=== PATIENT | female | born 1995 | race Caucasian/White ===

== ENCOUNTER 2017-10-08 09:08 | Emergency (ER) | payer BC ==
--- NOTE | 2017-10-08 09:29 | UC ---
Throat Pain/Nasal Jean-Pierre HPI - HPI Summary HPI Summary: Patient has had worsening sore throat and fever over the past 7 days. Denies cough - History of Current Complaint Chief Complaint: UCRespiratory Stated Complaint: SORE THROAT,FEVER Time Seen by Provider: 10/08/17 09:26 Hx Obtained From: Patient ?: No Onset/Duration: Sudden Onset, Lasting Days - 7 Severity: Moderate Cough: None - Allergies/Home Medications Home Medications: Home Medications Ethinyl Estradiol/Drospirenone [Ocella 3 mg-0.03 mg Tablet] 1 each PO DAILY [History Confirmed 10/08/17] Ibuprofen 400 mg PO Q8H 10/08/17 [History Confirmed 10/08/17] Pseudoephedrine HCl [Sudafed] 30 mg PO Q12H 10/08/17 [History Confirmed 10/08/17 ] PMH/Surg Hx/FS Hx/Imm Hx Previously Healthy: Yes - Family History Known Family History: Positive: None - Social History Occupation: Student Lives: Dormitory/Roommates Alcohol Use: None Substance Use Type: None Smoking Status (MU): Never Smoked Tobacco Review of Systems Constitutional: Fever, Chills, Fatigue Skin: Negative Eyes: Negative ENT: Sore Throat Respiratory: Negative Cardiovascular: Negative Gastrointestinal: Negative Genitourinary: Negative Motor: Negative Neurovascular: Negative Musculoskeletal: Negative Neurological: Negative Psychological: Negative Is Patient Immunocompromised?: No All Other Systems Reviewed And Are Negative: Yes Physical Exam Triage Information Reviewed: Yes Appearance: No Pain Distress, Well-Nourished, Ill-Appearing - mild Vital Signs Reviewed: Yes Eye Exam: Normal Eyes: Positive: Conjunctiva Clear ENT Exam: Normal ENT: Positive: Normal ENT inspection, Hearing grossly normal, Pharyngeal erythema, Tonsillar swelling, Tonsillar exudate, Uvula midline. Negative: Nasal congestion, TMs normal, Trismus, Muffled voice, Hoarse voice, Dental tenderness, Sinus tenderness Dental Exam: Normal Neck exam: Normal Neck: Positive: Supple, Nontender, Enlarged Nodes @ - anterior cervical Respiratory Exam: Normal Respiratory: Positive: Chest non-tender, Lungs clear, Normal breath sounds, No respiratory distress, No accessory muscle use Cardiovascular Exam: Normal Cardiovascular: Positive: RRR, No Murmur, Pulses Normal, Brisk Capillary Refill Musculoskeletal Exam: Normal Musculoskeletal: Positive: Strength Intact, ROM Intact, No Edema Neurological Exam: Normal Neurological: Positive: Alert, Muscle Tone Normal Psychological Exam: Normal Skin Exam: Normal Diagnostics - Laboratory Diagnostic Studies Completed/Ordered: RST (-) Throat Pain/Nasal Course/Dx - Course Assessment/Plan: We will draw labs for CBC and Monospot. Burst dose of prednisone for swelling and comfort - Differential Dx/Diagnosis Provider Diagnoses: Viral syndrome, tonsillitis Discharge - Sign-Out/Discharge Documenting (check all that apply): Post-Discharge Follow Up - Discharge Plan Condition: Stable Disposition: HOME Prescriptions: predniSONE TAB* [Deltasone TAB*] 50 mg PO DAILY #4 tab Patient Education Materials: Tonsillitis (ED), Viral Syndrome (ED) Referrals: [facility] [Outside] - 2 Days Non Staff,Doctor [Primary Care Provider] - Additional Instructions: Vanessa alford are checking you for mono. We should have the blood report back later on this afternoon. Please feel free to call back around 4:00. In the meantime rest and increase fluids the prednisone will help decrease swelling in her throat and decrease pain. - Billing Disposition and Condition Condition: STABLE Disposition: HOME
[2017-10-08 09:32] VITALS: BP 108/73
[2017-10-08 13:45] LABS: ABS Basophils 0.1 10^3/ul (0-0.2); ABS Eosinophils 0.1 10^3/ul (0-0.6); ABS Lymphocytes 3.3 10^3/ul (1.0-4.8); ABS Monocytes 1.1 10^3/ul (0-0.8); ABS Neutrophils 4.1 10^3/ul (1.5-7.7); ABS Nucleated RBC 0 10^3/ul; Eosinophil % 1.2 % (0-6); Hematocrit 38 % (35-47); Hemoglobin 12.8 g/dl (12.0-16.0); Lymphocyte % 38.2 % (25-47); Mean Corpuscular HGB Conc 34 g/dl (31-36); Mean Corpuscular Hemoglobin 26 pg (27-31); Mean Corpuscular Volume 76 fL (80-97); Mean Platelet Volume 7.7 um3 (7.4-10.4); Nucleated Red Blood Cells % 0.3; Platelet Count 227 10^3/ul (150-450); Red Blood Count 4.99 10^6/ul (4.0-5.4); Red Cell Distribution Width 16 % (10.5-15); White Blood Count 8.6 10^3/ul (3.5-10.8)
--- NOTE | 2017-10-08 17:04 | UC ---
- Progress Note Progress Note: Patient's Monospot returned positive. Attempted to call patient at this all number she provided and it went to a full voice mailbox Discharge - Sign-Out/Discharge Documenting (check all that apply): Post-Discharge Follow Up - Discharge Plan Condition: Stable Disposition: HOME Prescriptions: predniSONE TAB* [Deltasone TAB*] 50 mg PO DAILY #4 tab Patient Education Materials: Tonsillitis (ED), Viral Syndrome (ED) Referrals: [facility] [Outside] - 2 Days Non Staff,Doctor [Primary Care Provider] - Additional Instructions: Vanessa alford are checking you for mono. We should have the blood report back later on this afternoon. Please feel free to call back around 4:00. In the meantime rest and increase fluids the prednisone will help decrease swelling in her throat and decrease pain. - Billing Disposition and Condition Condition: STABLE Disposition: HOME
== END 2017-10-08 10:45 | disposition home or self-care (01) ==
LOC: UCCORT 09:08
DX: B34.9 Viral infection, unspecified (principal); J03.90 Acute tonsillitis, unspecified
CPT/HCPCS: 36415; 85025; 86308; 87651; 99202; G0463